=== PATIENT | female | born 1955 | race Caucasian/White ===

== ENCOUNTER → 2017-12-10 | Outpatient (CLI) | payer OTHER ==
[2017-12-10 11:51] LABS: HEMATOCRIT 39.3 % (36.0-47.0); HEMOGLOBIN 12.5 g/dl (12.0-16.0); MEAN CORPUSCULAR HEMOGLOBIN 28.3 pg (27.0-33.0); MEAN CORPUSCULAR HGB CONC 31.8 g/dl (32.0-36.5); MEAN CORPUSCULAR VOLUME 88.9 fl (80.0-96.0); PLATELET COUNT, AUTOMATED 269 10^3/uL (150-450); RED BLOOD COUNT 4.42 10^6/uL (4.00-5.40); RED CELL DISTRIBUTION WIDTH 13.8 % (11.5-14.5); WHITE BLOOD COUNT 7.7 10^3/uL (4.0-10.0)
[2017-12-10 11:54] LABS: APPEARANCE, URINE CLEAR (CLEAR); BACTERIA, URINE AUTO NEGATIVE (NEGATIVE); BILIRUBIN, URINE AUTO NEGATIVE (NEGATIVE); BLOOD, URINE BLOOD 1+ (NEGATIVE); COLOR, URINE YELLOW (YELLOW); GLUCOSE, URINE (UA) AUTO NEGATIVE (NEGATIVE); KETONE, URINE AUTO NEGATIVE (NEGATIVE); LEUKOCYTE ESTERASE, URINE AUTO NEGATIVE (NEGATIVE); NITRITE, URINE AUTO NEGATIVE (NEGATIVE); PROTEIN, URINE AUTO NEGATIVE (NEGATIVE); RBC, URINE AUTO 1 /HPF (0-3); SPECIFIC GRAVITY URINE AUTO 1.008 (1.002-1.035); SQUAMOUS EPITHELIAL CELL UR AU 0 /HPF (0-6); UROBILINOGEN, URINE AUTO 0.2 mg/dL (0.0-2.0); WBC, URINE AUTO 1 /HPF (0-3)
[2017-12-10 12:07] LABS: INR 0.91; PROTHROMBIN TIME 12.3 SECONDS (12.4-14.5)
[2017-12-10 12:14] LABS: ALBUMIN 3.6 GM/DL (3.2-5.2); ALKALINE PHOSPHATASE 118 U/L (45-117); ALT/SGPT 28 U/L (12-78); ANION GAP 4 MEQ/L (8-16); AST/SGOT 16 U/L (7-37); BILIRUBIN,TOTAL 0.3 MG/DL (0.2-1.0); BLOOD UREA NITROGEN 16 MG/DL (7-18); CALCIUM LEVEL 9.2 MG/DL (8.8-10.2); CARBON DIOXIDE LEVEL 32 MEQ/L (21-32); CHLORIDE LEVEL 106 MEQ/L (98-107); GLOMERULAR FILTRATION RATE > 60.0 (>45); GLUCOSE, FASTING 103 MG/DL (70-100); POTASSIUM SERUM 4.3 MEQ/L (3.5-5.1); SODIUM LEVEL 142 MEQ/L (136-145); TOTAL PROTEIN 7.6 GM/DL (6.4-8.2)
[2017-12-10 12:16] LABS: ERYTHROCYTE SEDIMENTATION RATE 34 mm/hr (0-30)
== END ==
LOC: M ADMPAT 10:26
DX: Z01.818 Encounter for other preprocedural examination (principal); I49.9 Cardiac arrhythmia, unspecified; I45.10 Unspecified right bundle-branch block; M16.11 Unilateral primary osteoarthritis, right hip
CPT/HCPCS: 71046

== ENCOUNTER 2017-12-23 12:39 | Inpatient (IN) | payer OTHER ==
[2017-12-23] MEDS ORDERED: LIDOCAINE 1% MDV 20ML VIAL SQ (13:00)
[2017-12-23] MEDS: LR 1,000 ML IV ×3 (13:22→19:45)
[2017-12-23] MEDS ORDERED: MIDAZOLAM INJ 2 MG/2 ML VIAL (J2250) As Ordered (15:14)
[2017-12-23] MEDS ORDERED: fentaNYL 100 MCG/2 ML INJECTION (J3010) As Ordered (15:14)
[2017-12-23] MEDS ORDERED: PROPOFOL 200 MG/20 ML VIAL As Ordered ×2 (15:15)
[2017-12-23] MEDS ORDERED: ONDANSETRON 4MG/2ML VIAL (J2405) As Ordered (15:15)
[2017-12-23] MEDS ORDERED: LIDOCAINE 2% INJ 100 MG/5 ML SDV (FOR ANES.) As Ordered (15:15)
[2017-12-23] MEDS: ceFAZolin 1GM INJ (J0690 PER 500MG) As Ordered (15:40)
[2017-12-23] MEDS: EPINEPHrine INJ 1 MG/ML 1ML AMP As Ordered (15:41)
[2017-12-23] MEDS: TRANEXAMIC ACID 100 MG/ML 10ML VIAL As Ordered (15:41)
[2017-12-23] MEDS ORDERED: MORPHINE 1MG/ML IN 0.9% NACL 100ML IV BAG As Ordered (16:42)
[2017-12-23] MEDS ORDERED: fentaNYL 100 MCG/2 ML INJECTION (J3010) IV (17:00)
[2017-12-23] MEDS ORDERED: MORPHINE 10 MG/ML 1ML VIAL IV (17:00)
[2017-12-23] MEDS ORDERED: METOCLOPRAMIDE INJ 10MG/2ML VIAL (J2765) IV (17:00)
[2017-12-23] MEDS ORDERED: PERCOCET 5MG/325MG TAB PO (17:00)
[2017-12-23] MEDS ORDERED: ONDANSETRON 4MG/2ML VIAL (J2405) IV ×2 (17:00→19:00)
[2017-12-23] MEDS ORDERED: EPIDURAL/PCA KEYS XX (18:45)
[2017-12-23] MEDS ORDERED: NALOXONE INJ 0.4 MG/1 ML VIAL (J2310) IV (18:45)
[2017-12-23] MEDS ORDERED: diphenhydrAMINE INJ 50MG/ML VIAL (J1200) IV (18:45)
[2017-12-23] MEDS ORDERED: MORPHINE 1MG/ML IN 0.9% NACL 100ML IV BAG IV (18:45)
[2017-12-23] MEDS ORDERED: NALBUPHINE HCL 10 MG/ML AMP (J2300) IV (18:45)
[2017-12-23] MEDS ORDERED: FLEET ENEMA PR (19:00)
[2017-12-23] MEDS ORDERED: ACETAMINOPHEN TAB 650MG DOSE (2X325MG) PO (19:00)
[2017-12-23] MEDS: WARFARIN SOD 5 MG TAB PO (20:28)
[2017-12-24] MEDS: ONDANSETRON 4MG/2ML VIAL (J2405) IV (03:39)
[2017-12-24] MEDS ORDERED: ONDANSETRON 4 MG TAB (S0181) PO (06:30)
[2017-12-24 06:39] LABS: HEMATOCRIT 35.6 % (36.0-47.0); HEMOGLOBIN 11.4 g/dl (12.0-16.0); MEAN CORPUSCULAR HEMOGLOBIN 28.5 pg (27.0-33.0); PLATELET COUNT, AUTOMATED 233 10^3/uL (150-450); RED CELL DISTRIBUTION WIDTH 13.6 % (11.5-14.5)
[2017-12-24 06:47] LABS: PROTHROMBIN TIME 14.4 SECONDS (12.4-14.5)
[2017-12-24] MEDS: PERCOCET 5MG/325MG TAB PO ×4 (07:06→20:15)
[2017-12-24] MEDS: MOM 30ML SUSPENSION UDC PO (09:10)
[2017-12-24] MEDS: MIRALAX *UNIT DOSE* 17GM PACKET PO (09:10)
[2017-12-24] MEDS: SENOKOT S TAB PO ×2 (09:11→20:15)
[2017-12-24] MEDS: WARFARIN SOD 5 MG TAB PO (17:43)
[2017-12-25] MEDS: PERCOCET 5MG/325MG TAB PO ×5 (04:16→18:27)
[2017-12-25 06:57] LABS: HEMATOCRIT 35.3 % (36.0-47.0); HEMOGLOBIN 11.4 g/dl (12.0-16.0); MEAN CORPUSCULAR HEMOGLOBIN 28.4 pg (27.0-33.0); MEAN CORPUSCULAR HGB CONC 32.3 g/dl (32.0-36.5); PLATELET COUNT, AUTOMATED 221 10^3/uL (150-450); RED BLOOD COUNT 4.01 10^6/uL (4.00-5.40); RED CELL DISTRIBUTION WIDTH 13.5 % (11.5-14.5); WHITE BLOOD COUNT 15.8 10^3/uL (4.0-10.0)
[2017-12-25 07:08] LABS: PROTHROMBIN TIME 19.5 SECONDS (12.4-14.5)
[2017-12-25] MEDS: MOM 30ML SUSPENSION UDC PO (09:00)
[2017-12-25] MEDS: SENOKOT S TAB PO ×2 (09:05→20:33)
[2017-12-25] MEDS: MIRALAX *UNIT DOSE* 17GM PACKET PO (09:09)
[2017-12-25] MEDS: WARFARIN SOD 3 MG TAB PO (17:21)
[2017-12-26] MEDS: PERCOCET 5MG/325MG TAB PO ×2 (05:16→09:42)
[2017-12-26 07:20] LABS: INR 1.99; PROTHROMBIN TIME 23.3 SECONDS (12.4-14.5)
[2017-12-26] MEDS: MOM 30ML SUSPENSION UDC PO (08:47)
[2017-12-26] MEDS: SENOKOT S TAB PO (08:48)
[2017-12-26] MEDS: MIRALAX *UNIT DOSE* 17GM PACKET PO (08:48)
== END 2017-12-26 11:30 | disposition home health service (06) | DRG 301 ==
LOC: M OR 12:39 → M MS5PR 18:15
PROC: 0SR904A Replacement of Right Hip Joint with Ceramic on Polyethylene Synthetic Substitute, Uncemented, Open Approach (ICD-10-PCS; principal; 2017-12-23 15:03)
DX: M16.11 Unilateral primary osteoarthritis, right hip (principal)

== ENCOUNTER → 2018-01-09 | Outpatient (REF) | payer OTHER ==
[2018-01-09 14:32] LABS: INR 1.61; PROTHROMBIN TIME 19.6 SECONDS (12.4-14.5)
== END ==
LOC: M SHH 13:58
DX: Z79.01 Long term (current) use of anticoagulants (principal)

== ENCOUNTER → 2018-01-16 | Outpatient (REF) | payer OTHER ==
[2018-01-16 15:05] LABS: INR 2.08; PROTHROMBIN TIME 24.1 SECONDS (12.4-14.5)
== END ==
LOC: M SHH 14:38
DX: Z79.01 Long term (current) use of anticoagulants (principal)

== ENCOUNTER → 2018-06-26 | Outpatient (CLI) | payer BC | LOC: M LRY 10:48 | DX: R06.02 Shortness of breath (principal) | CPT/HCPCS: G0463 ==

== ENCOUNTER → 2018-09-25 | Outpatient (REF) | payer BC ==
[2018-09-27 15:23] LABS: HPV HYBRID CAPTURE II Negative (Negative)
== END ==
LOC: M SFHCWAGY 10:39
DX: Z12.4 Encounter for screening for malignant neoplasm of cervix (principal)
CPT/HCPCS: G0123

== ENCOUNTER → 2018-10-06 | Outpatient (REF) | payer BC | LOC: M LAB REF 15:29 | DX: D23.5 Other benign neoplasm of skin of trunk (principal) | CPT/HCPCS: 88305 ==

== ENCOUNTER → 2019-05-05 | Outpatient (REF) | payer OTHER ==
[~2019-05-05] MED LIST: COUM2.5T17 PO; PERC5TAB12 PO
[2019-05-05 12:30] LABS: BASO # 0.1 10^3/uL (0.0-0.2); BASO % 1.2 % (0.0-1.0); EOS # 0.1 10^3/uL (0.0-0.50); EOS % 1.3 % (0.0-3.0); HEMATOCRIT 43.4 % (36.0-47.0); HEMOGLOBIN 13.6 g/dl (12.0-15.5); LYMPH # 2.4 10^3/uL (1.5-4.5); LYMPH % 32.6 % (24.0-44.0); MEAN CORPUSCULAR HEMOGLOBIN 28.2 pg (27.0-33.0); MEAN CORPUSCULAR HGB CONC 31.3 g/dl (32.0-36.5); MONO # 0.5 10^3/uL (0.0-0.8); MONO % 6.8 % (0.0-5.0); NEUTROPHILS # 4.3 10^3/uL (1.8-7.7); NEUTROPHILS % 57.4 % (36.0-66.0); PLATELET COUNT, AUTOMATED 278 10^3/uL (150-450); RED BLOOD COUNT 4.82 10^6/uL (4.00-5.40); WHITE BLOOD COUNT 7.5 10^3/uL (4.0-10.0)
[2019-05-05 12:53] LABS: ALBUMIN 3.4 GM/DL (3.2-5.2); ALT/SGPT 30 U/L (12-78); BILIRUBIN,TOTAL 0.2 MG/DL (0.2-1.0); BLOOD UREA NITROGEN 17 MG/DL (7-18); CALCIUM LEVEL 9.6 MG/DL (8.8-10.2); CARBON DIOXIDE LEVEL 27 MEQ/L (21-32); CHLORIDE LEVEL 109 MEQ/L (98-107); CHOLESTEROL LEVEL 216 MG/DL (<200); CHOLESTEROL RISK RATIO 3.927 (<5); CREATININE FOR GFR 0.95 MG/DL (0.55-1.30); GLOMERULAR FILTRATION RATE > 60.0 (>45); GLUCOSE, FASTING 95 MG/DL (70-100); HDL CHOLESTEROL 55 MG/DL (>40); LDL CHOLESTEROL 117 MG/DL (<100); NON-HDL-C 161 MG/DL; POTASSIUM SERUM 5.1 MEQ/L (3.5-5.1); SODIUM LEVEL 143 MEQ/L (136-145); TOTAL PROTEIN 7.5 GM/DL (6.4-8.2); TRIGLYCERIDES LEVEL 222 MG/DL (<150)
== END ==
LOC: M SFHCLERA 07:53
PROVIDERS: ATTEND Nurse Practitioner Family
DX: R03.0 Elevated blood-pressure reading, without diagnosis of hypertension (principal); Z13.220 Encounter for screening for lipoid disorders

== ENCOUNTER 2019-06-09 09:07 | Day surgery (SDC) | payer OTHER ==
[~2019-06-09] VITALS: Ht 162.6 cm; Wt 85.6 kg
[~2019-06-09 09:07] MED LIST changes: +AMOX500C PO; +CETI10TA4 PO; +LIDOCAINE 2% INJ 100 MG/5 ML SDV (FOR ANES.) As Ordered ONE; +PROPOFOL 200 MG/20 ML VIAL As Ordered ONE
[2019-06-09] MEDS ORDERED: NS 1,000 ML IV ONE (09:45)
--- NOTE | 2019-06-09 11:12 | ROOR ---
Patient Name: Joann Anand Procedure Date: 06/09/2019 10:32 AM Date of : 1955 Age: 63 Room: [facility] Gender: Female Note Status: Finalized Procedure: Colonoscopy Indications: Screening for colorectal malignant neoplasm Providers: Bk Pete MD Referring MD: Shae ANDREWS Requesting Provider: Medicines: Monitored Anesthesia Care Complications: No immediate complications. Procedure: Pre-Anesthesia Assessment: - Prior to the procedure, a History and Physical was performed, and patient medications and allergies were reviewed. The patient is competent. The risks and benefits of the procedure and the sedation options and risks were discussed with the patient. All questions were answered and informed consent was obtained. Patient identification and proposed procedure were verified by the physician, the nurse and the anesthesiologist in the procedure room. Mental Status Examination: alert and oriented. Airway Examination: normal oropharyngeal airway and neck mobility. Respiratory Examination: clear to auscultation. CV Examination: normal. Prophylactic Antibiotics: The patient does not require prophylactic antibiotics. Prior Anticoagulants: The patient has taken no previous anticoagulant or antiplatelet agents. ASA Grade Assessment: II - A patient with mild systemic disease. After reviewing the risks and benefits, the patient was deemed in satisfactory condition to undergo the procedure. The anesthesia plan was to use monitored anesthesia care (MAC). Immediately prior to administration of medications, the patient was re-assessed for adequacy to receive sedatives. The heart rate, respiratory rate, oxygen saturations, blood pressure, adequacy of pulmonary ventilation, and response to care were monitored throughout the procedure. The physical status of the patient was re-assessed after the procedure. The Colonoscope was introduced through the anus and advanced to the terminal ileum, with identification of the appendiceal orifice and IC valve. The colonoscopy was performed without difficulty. The patient tolerated the procedure well. The quality of the bowel preparation was adequate to identify polyps 6 mm and larger in size and fair. The terminal ileum, ileocecal valve, appendiceal orifice, and rectum were photographed. Scope insertion time was 3 minutes. Scope withdrawal time was 9 minutes. The total duration of the procedure was 12 minutes. Findings: The perianal and digital rectal examinations were normal. The terminal ileum appeared normal. Two sessile polyps were found in the recto-sigmoid colon. The polyps were 5 to 10 mm in size. These polyps were removed with a cold snare. Resection and retrieval were complete. Verification of patient identification for the specimen was done by the physician and nurse using the patient's name, date and medical record number. Estimated blood loss was minimal. Multiple small and large-mouthed diverticula were found from sigmoid to descending colon. There was no evidence of diverticular bleeding. Non-bleeding external and internal hemorrhoids were found during retroflexion. The hemorrhoids were small. Impression: - Preparation of the colon was fair. - The examined portion of the ileum was normal. - Two 5 to 10 mm polyps at the recto-sigmoid colon, removed with a cold snare. Resected and retrieved. - Mild diverticulosis from sigmoid to descending colon. There was no evidence of diverticular bleeding. - Non-bleeding external and internal hemorrhoids. Recommendation: - Patient has a contact number available for emergencies. The signs and symptoms of potential delayed complications were discussed with the patient. Return to normal activities tomorrow. Written discharge instructions were provided to the patient. - High fiber diet. - Continue present medications. - Await pathology results. - Repeat colonoscopy in 3 - 5 years for surveillance based on pathology results. - Telephone GI clinic for pathology results in 2 weeks. - Return to primary care physician. Bk Pete MD Bk Pete MD 06/09/2019 11:11:46 AM Electronically signed by Bk Pete MD Number of Addenda: 0 Note Initiated On: 06/09/2019 10:32 AM Estimated Blood Loss: Estimated blood loss was minimal.
[2019-06-09 11:27] VITALS: BP 147/88
== END 2019-06-09 12:25 | disposition home or self-care (01) ==
LOC: M OPP 09:07
PROVIDERS: ATTEND Internal Medicine Gastroenterology
DX: Z12.11 Encounter for screening for malignant neoplasm of colon (principal); K64.8 Other hemorrhoids; K63.5 Polyp of colon; K57.30 Diverticulosis of large intestine without perforation or abscess without bleeding; Z91.013 Allergy to seafood

== ENCOUNTER → 2019-09-28 | Outpatient (REF) | payer OTHER ==
[~2019-09-28] MED LIST changes: -LIDOCAINE 2% INJ 100 MG/5 ML SDV (FOR ANES.) As Ordered ONE; -PROPOFOL 200 MG/20 ML VIAL As Ordered ONE
[2019-10-01 00:07] LABS: Lyme Disease IgG Ab 18 kDa Ban Present (.); Lyme Disease IgG Ab 23 kDa Ban Present (.); Lyme Disease IgG Ab 28 kDa Ban Present (.); Lyme Disease IgG Ab 30 kDa Ban Absent (.); Lyme Disease IgG Ab 39 kDa Ban Absent (.); Lyme Disease IgG Ab 41 kDa Ban Present (.); Lyme Disease IgG Ab 45 kDa Ban Absent (.); Lyme Disease IgG Ab 58 kDa Ban Absent (.); Lyme Disease IgG Ab 66 kDa Ban Absent (.); Lyme Disease IgG Ab 93 kDa Ban Absent (.); Lyme Disease IgG West Blot Int Negative (.); Lyme Disease IgG/IgM Antibodie 0.94 ISR (0.00-0.90); Lyme Disease IgM Ab 23 kDa Ban Present (.); Lyme Disease IgM Ab 39 kDa Ban Absent (.); Lyme Disease IgM Ab 41 kDa Ban Absent (.); Lyme Disease IgM Ab Quantitati <0.80 index (0.00-0.79); Lyme Disease IgM West Blot Int Negative (.)
== END ==
LOC: M SFHCLERA 09:00
PROVIDERS: ATTEND Nurse Practitioner Family
DX: S30.861D Insect bite (nonvenomous) of abdominal wall, subsequent encounter (principal)

== ENCOUNTER → 2019-12-10 | Outpatient (CLI) | payer OTHER ==
--- NOTE | 2019-12-11 03:48 | REP ---
Clinical: Postmenopausal bleeding. Technique: Transabdominal pelvic ultrasound followed by transvaginal examination for better evaluation of the endometrium and adnexa. Findings: Bladder is under distended and grossly normal measuring 6.7 x 6.2 x 3.2 cm. Heterogeneous anteverted uterus measures 6.3 x 3.1 x 3.7 cm. The endometrial complex measures up to 12 mm and demonstrates scattered cystic changes and subtle vascularity. The right ovary is not visualized. Left ovary is normal and measures 2.2 x 1.0 x 1.0 cm. No pelvic fluid or adnexal mass lesion. Impression: Thickened heterogeneous mildly vascular appearance to the endometrial complex suggesting hyperplasia. No discrete focal endometrial or uterine abnormality noted.
== END ==
LOC: M WHC 08:23
PROVIDERS: ATTEND Nurse Practitioner Family
DX: N95.0 Postmenopausal bleeding (principal)

== ENCOUNTER → 2020-01-05 | Outpatient (CLI) | payer OTHER ==
--- NOTE | 2020-01-05 13:29 | REP ---
Clinical: Tremors . Technique: Brandt scale and color Doppler evaluation using linear high frequency transducer Findings: Two-dimensional brandt scale and color images demonstrate minimal atheromatous plaquing with normal laminar flow and no appreciable narrowing. Color Doppler interrogation demonstrates normal arterial wave patterns and velocities with no significant spectral broadening. Normal flow direction is appreciated in the bilateral vertebral arteries. Incidental heterogeneous nonspecific thyroid nodules in the right lobe measuring 10 x 6 x 10 mm and 11 x 7 x 11 mm. RIGHT (cm/s) LEFT (cm/s) ICA peak systolic velocity 63.6 50.8 ICA diastolic velocity 21.7 21.4 ECA peak systolic velocity 68.3 75.1 CCA peak systolic velocity 75.2 75.6 ICA/CCA ratio 0.85 0.67 Impression: 1. No hemodynamically significant areas of narrowing or stenosis appreciated. Based on set standards narrowing falls within the normal/less than 50% range. 2. Incidental thyroid nodules. Electronically Signed by Leroy Gilbert MD 01/05/2020 01:20 P
== END ==
LOC: M RAD 11:49
PROVIDERS: ATTEND Psychiatry & Neurology Neurology
DX: G46.7 Other lacunar syndromes (principal)

== ENCOUNTER 2020-02-26 06:12 | Day surgery (SDC) | payer OTHER ==
[~2020-02-26] VITALS: Ht 162.6 cm; Wt 92.1 kg
[~2020-02-26 06:12] MED LIST changes: +CHLO25TA PO; +PROP20TA72 PO
[2020-02-26] MEDS ORDERED: MIDAZOLAM INJ 2 MG/2 ML VIAL (J2250) As Ordered ONE (06:58)
[2020-02-26] MEDS ORDERED: LIDOCAINE 2% INJ 100 MG/5 ML SDV (FOR ANES.) As Ordered ONE (06:59)
[2020-02-26] MEDS ORDERED: dexameTHASONE 4 MG/ML 1ML VIAL (J1100 PER 1MG) As Ordered ONE (06:59)
[2020-02-26] MEDS ORDERED: ePHEDrine SULFATE 25 MG/5 ML(5MG/ML) SYRINGE As Ordered ONE (06:59)
[2020-02-26] MEDS ORDERED: propofoL 200 MG/20 ML VIAL As Ordered ONE (06:59)
[2020-02-26] MEDS ORDERED: ONDANSETRON 4MG/2ML VIAL (J2405) As Ordered ONE (06:59)
[2020-02-26] MEDS ORDERED: PHENYLephrine HCL 500 MCG/5 ML (100MCG/ML) SYRINGE (J2370) As Ordered ONE (06:59)
[2020-02-26] MEDS ORDERED: fentaNYL 100 MCG/2 ML INJECTION (J3010) As Ordered ONE (06:59)
[2020-02-26] MEDS ORDERED: KETOROLAC 60 MG/2 ML VIAL (J1885) As Ordered ONE (06:59)
[2020-02-26] MEDS ORDERED: LR 1,000 ML IV ONE (07:00)
[2020-02-26 07:22] LABS: HEMATOCRIT 41.2 % (36.0-47.0); HEMOGLOBIN 13.6 g/dl (12.0-15.5); MEAN CORPUSCULAR VOLUME 84.8 fl (80.0-96.0); PLATELET COUNT, AUTOMATED 298 10^3/uL (150-450); RED BLOOD COUNT 4.86 10^6/uL (4.00-5.40); WHITE BLOOD COUNT 7.5 10^3/uL (4.0-10.0)
--- NOTE | 2020-02-26 08:37 | RO ---
DATE OF PROCEDURE: 02/26/2020 PREPROCEDURE DIAGNOSIS: Postmenopausal bleeding. POSTPROCEDURE DIAGNOSIS: Postmenopausal bleeding. PROCEDURE: Hysteroscopy, dilation and curettage, polypectomy. SURGEON: Dr. Olvin Godfrey. GROUND MIXER: ANESTHESIA: Laryngeal mask anesthesia (LMA). ESTIMATED BLOOD LOSS: 20 mL. FINDINGS: Large endometrial polyp attached to the fundus. Otherwise normal appearing endometrial cavity. DESCRIPTION OF PROCEDURE: The patient taken to the operating room where LMA anesthesia was induced. Patient was prepped and draped in a sterile fashion in the dorsal lithotomy position. A speculum was placed in the vaginal. The anterior lip of the cervix was grasped with a tenaculum. The cervix was dilated with the taper dilators. Diagnostic hysteroscope using normal saline as a distention media was placed through the internal os. Visualization of the endometrial cavity revealed the findings noted above. Polyp forceps were used to grasp the polyp, which was twisted and then avulsed at its base. The polyp was removed in its entirety. Sharp curettage was performed. A specimen of endometrial curettings was sent to pathology. Hysteroscope was placed back into the endometrial cavity. There was no evidence of any polyp remaining in the endometrium. The cavity appeared normal. All instruments were removed. Sponge and instruments counts were correct.
[2020-02-26] MEDS ORDERED: PERCOCET 5MG/325MG TAB PO PRN (09:00)
[2020-02-26] MEDS ORDERED: LR 1,000 ML IV SCH (09:00)
[2020-02-26] MEDS ORDERED: fentaNYL 100 MCG/2 ML INJECTION (J3010) IV PRN (09:00)
[2020-02-26] MEDS ORDERED: ONDANSETRON 4MG/2ML VIAL (J2405) IV PRN (09:00)
[2020-02-26] MEDS ORDERED: ACETAMINOPHEN 500 MG TAB PO ONE (10:00)
[2020-02-26 10:30] VITALS: BP 136/74
--- NOTE | 2020-02-26 12:29 | ECGEPIP ---
[facility] Test Date: 2020-02-26 Pat Name: SHIRA SANTO Department: Room: - Gender: Female Rn Clinical: SYED : 1955 Requested By: SABA Chambers Order Number: [id number] Reading MD: Prince Downey Measurements Intervals [place] Rate: 65 P: 63 DC: 161 QRS: -34 QRSD: 150 T: 10 QT: 456 QTc: 476 Interpretive Statements Normal sinus rhythm Extreme left axis-left anterior hemiblock Right bundle branch block No change from 12/10/17 Electronically Signed on 02-26-2020 12:29:21 EDT by Prince Downey
== END 2020-02-26 10:55 | disposition home or self-care (01) ==
LOC: M SDC 06:12
PROVIDERS: ATTEND Specialist
DX: N84.0 Polyp of corpus uteri (principal); N95.0 Postmenopausal bleeding; L71.9 Rosacea, unspecified; I10 Essential (primary) hypertension; K21.9 Gastro-esophageal reflux disease without esophagitis; M19.90 Unspecified osteoarthritis, unspecified site; R25.1 Tremor, unspecified; Z91.013 Allergy to seafood; Z79.899 Other long term (current) drug therapy
CPT/HCPCS: 36415; 58558; 85027; 88305; 93005; J1100; J1885; J2250; J2370; J2405; J3010

== ENCOUNTER → 2020-03-14 | Outpatient (REF) | payer OTHER ==
[2020-03-14 17:58] LABS: BASO # 0.1 10^3/uL (0.0-0.2); BASO % 0.9 % (0.0-1.0); EOS # 0.2 10^3/uL (0.0-0.5); EOS % 2.6 % (0.0-3.0); HEMATOCRIT 41.5 % (36.0-47.0); HEMOGLOBIN 13.8 g/dl (12.0-15.5); LYMPH # 3.5 10^3/uL (1.5-5.0); LYMPH % 40.6 % (24.0-44.0); MEAN CORPUSCULAR HEMOGLOBIN 28.2 pg (27.0-33.0); MEAN CORPUSCULAR HGB CONC 33.3 g/dl (32.0-36.5); MEAN CORPUSCULAR VOLUME 84.7 fl (80.0-96.0); MONO # 0.7 10^3/uL (0.0-0.8); NEUTROPHILS # 4.1 10^3/uL (1.5-8.5); NEUTROPHILS % 47.4 % (36.0-66.0); PLATELET COUNT, AUTOMATED 295 10^3/uL (150-450); WHITE BLOOD COUNT 8.6 10^3/uL (4.0-10.0)
[2020-03-14 18:35] LABS: ALBUMIN 3.4 GM/DL (3.2-5.2); BILIRUBIN,TOTAL 0.3 MG/DL (0.2-1.0); CALCIUM LEVEL 9.1 MG/DL (8.8-10.2); CREATININE FOR GFR 1.03 MG/DL (0.55-1.30); GLOMERULAR FILTRATION RATE 57.4 (>45); POTASSIUM SERUM 3.4 MEQ/L (3.5-5.1); THYROID STIMULATING HORMONE 1.53 uIU/ML (0.358-3.740); TOTAL PROTEIN 7.5 GM/DL (6.4-8.2)
[2020-03-14 18:51] LABS: ERYTHROCYTE SEDIMENTATION RATE 48 mm/hr (0-30)
[2020-03-16 11:16] LABS: HEPATITIS C VIRUS ABY INDEX 0.1 INDEX (<0.8)
== END ==
LOC: M SFHCLERA 16:26
PROVIDERS: ATTEND Family Medicine
DX: R53.1 Weakness (principal); R06.02 Shortness of breath; Z11.59 Encounter for screening for other viral diseases

== ENCOUNTER → 2020-03-14 | Outpatient (CLI) | payer OTHER ==
--- NOTE | 2020-03-15 04:35 | REP ---
Clinical: Chronic cough . Comparison: 06/26/2018 . Technique: PA and lateral. Findings: The mediastinum and cardiac silhouette are normal. The lung charles are clear and without acute consolidation, effusion, or pneumothorax. The skeletal structures are intact and normal. Impression: 1. No acute cardiopulmonary process. If the patient remains symptomatic consider chest CT for further investigation. Electronically Signed by Leroy Gilbert MD 03/15/2020 04:26 A
== END ==
LOC: M LRY 16:21
PROVIDERS: ATTEND Family Medicine
DX: R53.1 Weakness (principal)

== ENCOUNTER → 2020-04-20 | Outpatient (CLI) | payer OTHER ==
[~2020-04-20] MED LIST changes: +METHACHOLINE KIT (J7674) INH ONE
--- NOTE | 2020-04-20 14:00 | PFTRPT ---
Site: [facility], [address] [place], [address] ID: [id number] Name: SHIRA SANTO Visit Date: 04/20/2020 Second ID: [id number] Referring Doctor: CATRACHITA SANDHU DO Reviewing Doctor: Benji Swanson MD Welding Instructor: Sydni Whitney Age: 64 : 1955 Sex: Female Race: Height: 64.00 Inches Weight: 200.00 Lbs BSA: 1.96 Order IDs: [id number] Requested Test(s): <RESP-PFT.BROCHOPROV> Diagnosis: R53.1 puffs of albuterol for post bronchodilator. Review Status: Not Reviewed Pre-Bronch Post-Bronch Pred Actual %Pred Actual %Chng SPIROMETRY FVC (L) 3.17 2.37 74 2.37 FEV1 (L) 2.43 2.04 83 1.95 -4 FEV1/FVC (%) 77 86 111 82 -4 FEF 25% (L/sec) 4.87 4.15 85 5.18 24 FEF 50% (L/sec) 3.50 3.60 102 3.62 FEF 75% (L/sec) 1.11 1.02 91 0.70 -30 FEF 25-75% (L/sec) 2.15 2.74 127 2.20 -19 FEF Max (L/sec) 6.02 4.15 68 5.19 24 FIVC (L) 2.07 1.92 -7 FIF 50% (L/sec) 3.59 1.66 46 1.80 8 FIF Max (L/sec) 1.75 2.09 19 Expiratory Time (sec) 7.60 7.37 -3 Back Extrap Vol (L) 0.07 0.07 -2 Time To FEFmax (sec) 0.137 0.084 -38
== END ==
LOC: M CARPUL 12:47
PROVIDERS: ATTEND Family Medicine
DX: R53.1 Weakness (principal)

== ENCOUNTER → 2021-01-11 | Outpatient (CLI) | payer OTHER ==
[~2021-01-11] MED LIST changes: -METHACHOLINE KIT (J7674) INH ONE
--- NOTE | 2021-01-11 10:10 | REP ---
INDICATION: WORSENING CHRONIC COUGH. COMPARISON: 03/14/2020 TECHNIQUE: Two views FINDINGS: Lung charles are well inflated. The CP angles are sharply defined with no pleural effusion, lateral pleural thickening, apical scarring or pneumothorax. There is no dense consolidation or parenchymal mass. No pulmonary nodule. Few cuffed bronchi in the perihilar regions may reflect some bronchitis or reactive airway disease. Heart, mediastinal hilar contours are normal. The aorta is mildly tortuous but the unchanged without aneurysm. Airway intact. No widening of mediastinum. Bones show no acute compression deformity or focal lesion. No free air under the diaphragm. IMPRESSION: Some minor perihilar changes of bronchitis or reactive airway disease. No dense consolidation, pleural effusion, cardiomegaly or edema. <Electronically signed by Je Vásquez > 01/11/21 [id number]
== END ==
LOC: M WUC 09:27
PROVIDERS: ATTEND Nurse Practitioner Family
DX: R05 Cough (principal)

== ENCOUNTER → 2021-03-31 | Outpatient (CLI) | payer OTHER ==
[2021-03-31 10:05] LABS: BASO # 0.1 10^3/uL (0.0-0.2); BASO % 0.9 % (0.0-1.0); EOS # 0.1 10^3/uL (0.0-0.5); EOS % 1.2 % (0.0-3.0); HEMATOCRIT 43.2 % (36.0-47.0); HEMOGLOBIN 13.4 g/dl (12.0-15.5); LYMPH # 2.2 10^3/uL (1.5-5.0); LYMPH % 23.9 % (24.0-44.0); MEAN CORPUSCULAR HEMOGLOBIN 27.2 pg (27.0-33.0); MEAN CORPUSCULAR VOLUME 87.6 fl (80.0-96.0); MONO # 0.6 10^3/uL (0.0-0.8); MONO % 6.8 % (2.0-8.0); NEUTROPHILS # 6.1 10^3/uL (1.5-8.5); NEUTROPHILS % 66.8 % (36.0-66.0); PLATELET COUNT, AUTOMATED 276 10^3/uL (150-450); RED BLOOD COUNT 4.93 10^6/uL (4.00-5.40); WHITE BLOOD COUNT 9.1 10^3/uL (4.0-10.0)
[2021-03-31 10:29] LABS: ALBUMIN 3.6 GM/DL (3.2-5.2); ALT/SGPT 38 U/L (12-78); BILIRUBIN,TOTAL 0.4 MG/DL (0.2-1.0); BLOOD UREA NITROGEN 11 MG/DL (7-18); CALCIUM LEVEL 9.8 MG/DL (8.8-10.2); CARBON DIOXIDE LEVEL 30 MEQ/L (21-32); CHLORIDE LEVEL 105 MEQ/L (98-107); CHOLESTEROL LEVEL 231 MG/DL (<200); CHOLESTEROL RISK RATIO 3.982 (<5); CREATININE FOR GFR 0.82 MG/DL (0.55-1.30); GLOMERULAR FILTRATION RATE > 60.0 (>45); GLUCOSE, FASTING 98 MG/DL (70-100); HDL CHOLESTEROL 58 MG/DL (>40); LDL CHOLESTEROL 138 MG/DL (<100); NON-HDL-C 173 MG/DL; POTASSIUM SERUM 4.3 MEQ/L (3.5-5.1); SODIUM LEVEL 138 MEQ/L (136-145); TOTAL PROTEIN 7.6 GM/DL (6.4-8.2); TRIGLYCERIDES LEVEL 175 MG/DL (<150)
[2021-03-31 10:34] LABS: HEMOGLOBIN A1c 6.1 %
== END ==
LOC: M WUC 08:05
PROVIDERS: ATTEND Nurse Practitioner Family
DX: Z00.00 Encounter for general adult medical examination without abnormal findings (principal)

== ENCOUNTER → 2021-07-12 | Outpatient (REF) | payer OTHER | LOC: M SFHCWAGY 13:08 | PROVIDERS: ATTEND Advanced Practice Midwife | DX: Z12.4 Encounter for screening for malignant neoplasm of cervix (principal) | CPT/HCPCS: 87624; G0123 ==

== ENCOUNTER → 2021-07-12 | Outpatient (CLI) | payer OTHER ==
--- NOTE | 2021-07-12 11:05 | REPMRS ---
Patient History The patient states she had a clinical breast exam in June 2021. Patient is postmenopausal. Family history of breast cancer under age 50 in daughter. Benign ultrasound-guided core biopsy of the left breast, October 06, 2018. Patient states no breast complaints today. Patient has signed MRS History Sheet. Digital Woman Screen Mammo: July 12, 2021 - Exam #: [id number] Bilateral CC and MLO view(s) were taken. Technologist: Priya Pham, Technologist Prior study comparison: October 02, 2018, digital mammo diagnostic bilateral, performed at [facility]. January 30, 2016, digital woman screen mammo performed at [facility]. April 27, 2014, digital woman screen mammo performed at [facility]. FINDINGS: The breast tissue is almost entirely fat. The Volpara volumetric breast density category is: A. There has been no change in the appearance of the mammogram from the prior studies. There is no interval development of dominant mass, architectural distortion, or grouped microcalcification typical of malignancy. 3-D tomosynthesis shows no additional findings. Assessment: BI-RADS/ACR category 1 mammogram. Negative Mammogram. Recommendation Routine screening mammogram of both breasts in 1 year (for women over age 40). This patient's [facility] Lifetime Breast Cancer RIsk is estimated at 8.8 %. This mammogram was interpreted with the aid of an FDA-approved computer-aided dectection system. Electronically Signed By: Los Fox MD 07/12/21 [id number]
== END ==
LOC: M WHC 08:57
PROVIDERS: ATTEND Advanced Practice Midwife
DX: Z12.31 Encounter for screening mammogram for malignant neoplasm of breast (principal)

== ENCOUNTER → 2021-08-09 | Outpatient (CLI) | payer OTHER ==
[2021-08-09 11:55] LABS: BASO # 0.1 10^3/uL (0.0-0.2); EOS # 0.1 10^3/uL (0.0-0.5); EOS % 1.5 % (0.0-3.0); HEMATOCRIT 40.4 % (36.0-47.0); HEMOGLOBIN 12.7 g/dl (12.0-15.5); LYMPH # 2.7 10^3/uL (1.5-5.0); LYMPH % 32.2 % (24.0-44.0); MEAN CORPUSCULAR HEMOGLOBIN 27.7 pg (27.0-33.0); MEAN CORPUSCULAR HGB CONC 31.4 g/dl (32.0-36.5); MEAN CORPUSCULAR VOLUME 88.2 fl (80.0-96.0); MONO # 0.5 10^3/uL (0.0-0.8); MONO % 6.4 % (2.0-8.0); NEUTROPHILS # 4.8 10^3/uL (1.5-8.5); NEUTROPHILS % 58.2 % (36.0-66.0); PLATELET COUNT, AUTOMATED 274 10^3/uL (150-450); RED BLOOD COUNT 4.58 10^6/uL (4.00-5.40); WHITE BLOOD COUNT 8.2 10^3/uL (4.0-10.0)
[2021-08-09 14:14] LABS: ALBUMIN 3.2 GM/DL (3.2-5.2); ALT/SGPT 27 U/L (12-78); BILIRUBIN,TOTAL 0.3 MG/DL (0.2-1.0); BLOOD UREA NITROGEN 12 MG/DL (7-18); CALCIUM LEVEL 9.1 MG/DL (8.8-10.2); CARBON DIOXIDE LEVEL 26 MEQ/L (21-32); CHLORIDE LEVEL 109 MEQ/L (98-107); CREATININE FOR GFR 0.83 MG/DL (0.55-1.30); FREE T4 1.01 NG/DL (0.76-1.46); GLOMERULAR FILTRATION RATE > 60.0 (>45); GLUCOSE, FASTING 89 MG/DL (70-100); POTASSIUM SERUM 4.8 MEQ/L (3.5-5.1); SODIUM LEVEL 141 MEQ/L (136-145); TOTAL PROTEIN 7.2 GM/DL (6.4-8.2)
== END ==
LOC: M WUC 08:43
PROVIDERS: ATTEND Psychiatry & Neurology Neurology
DX: E04.1 Nontoxic single thyroid nodule (principal)

== ENCOUNTER → 2021-09-05 | Outpatient (CLI) | payer OTHER ==
--- NOTE | 2021-09-05 16:31 | REP ---
INDICATION: ENLARGED THYROID-LAB 1ST COMPARISON: None. TECHNIQUE: Brandt scale and color evaluation of the thyroid gland using the linear high frequency transducer. FINDINGS: Right thyroid lobe measures 3.9 x 1.9 x 1.1 cm and includes multiple nonspecific indeterminate simple and complex cysts along with complex nodules-the largest of which measures 1.1 x 1.3 x 1.1 cm in the midpole. Left thyroid lobe measures 3.6 x 1.1 x 0.9 cm and appears relatively normal. Isthmus measures 4.3 mm in width. IMPRESSION: Nonspecific indeterminate multinodular changes to the right thyroid lobe. <Electronically signed by Leroy Gilbert > 09/05/21 [id number]
[2021-09-05 16:51] LABS: FREE T4 1.08 NG/DL (0.76-1.46); THYROID STIMULATING HORMONE 1.48 uIU/ML (0.358-3.740)
== END ==
LOC: M RAD 15:51
PROVIDERS: ATTEND Nurse Practitioner Family
DX: E04.1 Nontoxic single thyroid nodule (principal)

== ENCOUNTER → 2021-12-07 | Outpatient (CLI) | payer OTHER ==
[~2021-12-07] MED LIST changes: +LIDOCAINE 1% MDV 20ML VIAL As Ordered ONE
[2021-12-07 15:30] VITALS: BP 126/72
== END ==
LOC: M IRPRO 14:33
PROVIDERS: ATTEND Nurse Practitioner Family
DX: E04.1 Nontoxic single thyroid nodule (principal)

== ENCOUNTER → 2023-04-04 | Outpatient (CLI) | payer OTHER ==
[~2023-04-04] MED LIST changes: -LIDOCAINE 1% MDV 20ML VIAL As Ordered ONE
== END ==
LOC: M RAD 12:07
PROVIDERS: ATTEND Family Medicine
DX: E04.1 Nontoxic single thyroid nodule (principal)

== ENCOUNTER → 2024-03-27 | Outpatient (CLI) | payer OTHER | LOC: M WHC 10:22 | PROVIDERS: ATTEND Advanced Practice Midwife | DX: Z12.31 Encounter for screening mammogram for malignant neoplasm of breast (principal) ==

== ENCOUNTER → 2024-03-27 | Outpatient (REF) | payer MEDICARE, OTHER | LOC: M SFHCWAGY 14:51 | PROVIDERS: ATTEND Advanced Practice Midwife | DX: N89.8 Other specified noninflammatory disorders of vagina (principal); R10.2 Pelvic and perineal pain ==

== ENCOUNTER → 2024-10-20 | Outpatient (REF) | payer OTHER, MEDICARE | LOC: M SFHCWAGY 17:12 | PROVIDERS: ATTEND Nurse Practitioner Family | DX: N90.4 Leukoplakia of vulva (principal) ==

== ENCOUNTER → 2024-11-23 | Outpatient (REF) | payer MEDICARE, OTHER ==
[2024-11-23 19:00] LABS: BASO # 0.1 10^3/uL (0.0-0.2); BASO % 0.9 % (0.0-1.0); EOS # 0.1 10^3/uL (0.0-0.5); EOS % 1.3 % (0.0-3.0); HEMATOCRIT 40.7 % (36.0-47.0); HEMOGLOBIN 13.3 g/dl (12.0-15.5); LYMPH # 2.6 10^3/uL (1.5-5.0); LYMPH % 32.6 % (24.0-44.0); MEAN CORPUSCULAR HEMOGLOBIN 29.2 pg (27.0-33.0); MEAN CORPUSCULAR HGB CONC 32.7 g/dl (32.0-36.5); MEAN CORPUSCULAR VOLUME 89.5 fl (80.0-96.0); MONO # 0.5 10^3/uL (0.0-0.8); MONO % 6.3 % (2.0-8.0); NEUTROPHILS # 4.7 10^3/uL (1.5-8.5); NEUTROPHILS % 58.6 % (36.0-66.0); PLATELET COUNT, AUTOMATED 279 10^3/uL (150-450); RED BLOOD COUNT 4.55 10^6/uL (4.00-5.40)
[2024-11-23 19:37] LABS: ALBUMIN 3.5 G/DL (3.2-5.2); ALKALINE PHOSPHATASE 139 U/L (35-104); ALT/SGPT 41 U/L (7.0-40); AST/SGOT 21 U/L (<34); BILIRUBIN,TOTAL 0.2 MG/DL (0.3-1.2); BLOOD UREA NITROGEN 14 MG/DL (9-23); CALCIUM LEVEL 9.6 MG/DL (8.3-10.6); CARBON DIOXIDE LEVEL 27 MMOL/L (20-31); CHLORIDE LEVEL 101 MMOL/L (98-107); CHOLESTEROL LEVEL 241 MG/DL (<200); CHOLESTEROL RISK RATIO 3.84 (<5); CREATININE FOR GFR 0.72 MG/DL (0.55-1.30); GLOMERULAR FILTRATION RATE > 60.0 (>45); GLUCOSE, FASTING 86 MG/DL (74-106); HDL CHOLESTEROL 62.6 MG/DL (>40); LDL CHOLESTEROL 138.8 MG/DL (<100); NON-HDL-C 178.4 MG/DL; POTASSIUM SERUM 4.6 MMOL/L (3.5-5.1); SODIUM LEVEL 138 MMOL/L (136-145); TOTAL PROTEIN 7.4 G/DL (5.7-8.2); TRIGLYCERIDES LEVEL 198 MG/DL (<150)
== END ==
LOC: M SFHCLERA 10:38
PROVIDERS: ATTEND Family Medicine
DX: Z00.00 Encounter for general adult medical examination without abnormal findings (principal); Z79.899 Other long term (current) drug therapy

== ENCOUNTER → 2025-03-11 | Outpatient (CLI) | payer MEDICARE | LOC: M WUC 10:18 | DX: R05.1 Acute cough (principal) ==